=== PATIENT | male | born 1950 | race Caucasian/White ===

== ENCOUNTER 2018-11-09 08:38 | Emergency (ER) | payer OTHER, MEDICAID ==
[~2018-11-09] VITALS: Ht 167.6 cm; Wt 59.0 kg
[2018-11-09 08:46] VITALS: BP 154/95
--- NOTE | 2018-11-09 08:56 | NUR ---
BIB CAREGIVER FROM [facility] C/O LEFT FOOT REDNESS & SWOLLEN X LAST NIGHT. PT ACTING NEUROLOGICALLY AT BASE LINE. STEADY GAIT. CAP REFILL < 3 SECS, + MOVEMENT, + SENSATION TO L FOOT. TENDER TO TOUCH. 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 HOB UP. BED SIDE RAILS UP X1. ON LOW BED POSITION, LOCKED. ER MADE AWARE OF PT STATUS.
--- NOTE | 2018-11-09 08:56 | NUR ---
pt in wheelchair to er bed 04
--- NOTE | 2018-11-09 09:05 | NUR ---
DR Remington SCHERER AT BEDSIDE FOR PT EVALUATION
[2018-11-09] MEDS ORDERED: MORPHINE SULFATE 2 MG/ML SYR IVP ONE (09:10)
--- NOTE | 2018-11-09 09:17 | NUR ---
PORT SURVEYOR AT BEDSIDE
--- NOTE | 2018-11-09 09:35 | NUR ---
FENCE RIDER AT BEDSIDE
[2018-11-09 09:36] LABS: BASOPHILS % (AUTO) 0.4 % (0.0-2.0); EOSINOPHILS # (AUTO) 0.1 K/uL (0-0.4); HEMATOCRIT 43.5 % (36-52); HEMOGLOBIN 14.4 g/dL (12.0-18.0); LYMPHOCYTES # (AUTO) 0.9 K/uL (2.0-11.5); LYMPHOCYTES % (AUTO) 13.5 % (20.5-51.1); MEAN CORPUSCULAR HEMOGLOBIN 30 pg (27-31); MEAN CORPUSCULAR HGB CONC 33 g/dL (33-37); MEAN CORPUSCULAR VOLUME 91.3 fL (80-94); MONOCYTES % (AUTO) 14.7 % (1.7-9.3); NEUTROPHILS # (AUTO) 4.5 K/uL (1.8-7.7); NEUTROPHILS % (AUTO) 69.4 % (42.2-75.2); PLATELET COUNT (AUTO) 257 K/uL (140-450); RED BLOOD CELL COUNT(AUTO) 4.77 MIL/uL (4.20-6.10); RED CELL DISTRIBUTION WIDTH 13.5 % (11.6-13.7); WHITE BLOOD COUNT (AUTO) 6.5 K/uL (4.8-10.8)
--- NOTE | 2018-11-09 09:46 | NUR ---
RECEIVED CALL FROM hiogi THAT CRP LAB WILL BE DELAYED DUE TO ENGINEERING PROBLEM. DR Remington SCHERER MADE AWARE.
[2018-11-09 09:50] LABS: ANION GAP 10.8 (8-16); CARBON DIOXIDE 29.7 mmol/L (21-32); CREATININE 1.3 mg/dL (0.7-1.3); POTASSIUM 3.5 mmol/L (3.5-5.1)
[2018-11-09 09:57] LABS: ALBUMIN 3.6 g/dL (3.4-5.0); TOTAL BILIRUBIN 0.3 mg/dL (0.0-1.0)
--- NOTE | 2018-11-09 10:00 | NUR ---
PT IS RELAXED, ACTING APPROPRIATELY. NO SIGNS AND SYMPTOMS OF DISTRESS NOTED.
--- NOTE | 2018-11-09 11:07 | NUR ---
DR Bulmaro SCHERER AT BEDSIDE FOR PT RE EVALUATION
[2018-11-09 11:20] VITALS: BP 104/66
--- NOTE | 2018-11-09 11:20 | NUR ---
Patient discharged with v/s stable. Written and verbal after care instructions given and explained. Patient alert, oriented and verbalized understanding of instructions. Wheel Chair Assisted with by caregiver. All questions addressed prior to discharge. ID band removed. Patient advised to follow up with PMD. Rx of Keflex given. Patient educated on indication of medication including possible reaction and side effects. Opportunity to ask questions provided and answered.
== END 2018-11-09 11:20 | disposition home or self-care (01) ==
LOC: MED 08:38
DX: L03.116 Cellulitis of left lower limb (principal)
CPT/HCPCS: 36415; 73630; 80053; 85025; 85651; 86140; 93971; 96374; 99284; J2270; Q0092; 99283

== ENCOUNTER 2018-11-20 15:18 | Emergency (ER) | payer OTHER, MEDICAID ==
[~2018-11-20] VITALS: Ht 167.6 cm; Wt 63.5 kg
[2018-11-20 15:26] VITALS: BP 125/78
--- NOTE | 2018-11-20 15:49 | NUR ---
PT IS UNABLE TO COMMUNICATE. PER CAREGIVER, C/O RT KNEE PAIN X1 DAY. PT RETRACTS FROM TOUCH TO RT KNEE. ERYTHEMA AND EDEMA PRESENT IN RT KNEE. CARE TACKER DENIES TRAUMA. PT FROM [facility] BOARD IN CARE. PT WAS SEEN HERE ON 11/09 FOR LEFT FOOT SWELLING AND GIVEN KEFLEX. DENIES N/V/D; SKIN IS PINK/WARM/DRY; PT'S CAREGIVER DENIES ANY FEVER, CP, SOB, OR COUGH AT THIS TIME; PATIENT IS UNABLE TO DESCRIPE THE PAIN; VSS; PATIENT POSITIONED FOR COMFORT; HOB ELEVATED; BEDRAILS UP X2; BED DOWN. ER MD MADE AWARE OF PT STATUS. CAREGIVER IS AT BEDSIDE.
[2018-11-20] MEDS ORDERED: ceFAZolin 1,000 MG VIAL IM ONE (16:00)
[2018-11-20] MEDS ORDERED: KETOROLAC 60 MG/2 ML VIAL IM ONE (16:00)
[2018-11-20] MEDS ORDERED: WATER STERILE 10 ML MC ONE (16:22)
[2018-11-20 17:01] VITALS: BP 124/79
--- NOTE | 2018-11-20 17:01 | NUR ---
Patient discharged with v/s stable. Written and verbal after care instructions given and explained caregiver. All questions addressed prior to discharge. Rx of Keflex given. Patient's caregiver educated on indication of medication including possible reaction and side effects. Opportunity to ask questions provided and answered. Pt was discharged by .
== END 2018-11-20 17:01 | disposition home or self-care (01) ==
LOC: MED 15:18
DX: L03.115 Cellulitis of right lower limb (principal); I10 Essential (primary) hypertension; F41.9 Anxiety disorder, unspecified; E78.5 Hyperlipidemia, unspecified
CPT/HCPCS: 96372; 99283; J0690; J1885

== ENCOUNTER 2019-05-30 18:50 | Emergency (ER) | payer OTHER, MEDICAID ==
[~2019-05-30] VITALS: Ht 154.9 cm; Wt 61.5 kg
[2019-05-30 18:58] VITALS: BP 142/31
--- NOTE | 2019-05-30 19:08 | NUR ---
68 Y/O M BIB CAREGIVER FROM [facility] FOR LEFT HAND PAIN. LEFT HAND REDNESS AND SWELLING NOTED, WARM TO TOUCH. PAIN LEVEL 5/10 ACCORDING TO DORSEY LAINEZ FACES PAIN SCALE. PT AFEBRILE. PT NONVERBAL. AT BASELINE/MENTAL STATUS PER CAREGIVER. HOB ELEVATED, BED IN LOWEST POSITION, BED RAIL UP X2. CAREGIVER AT BEDSIDE. WAITING FOR ERMD TO EVALUATE PT. ALLERGIES: NKA MED HX: CP-PID, HTN, HYPERLIPIDEMIA, CHRONIC CONSTIPATION, SELF ABUSIVE DEPRESSION, ANXIETY WITH AGGRESSIVE BEHAVIOR
--- NOTE | 2019-05-30 19:17 | NUR ---
DR. LÓPEZ AT EVALUATING PT AT BEDSIDE
[2019-05-30] MEDS ORDERED: CEPHALEXIN 500 MG CAP PO ONE (19:25)
[2019-05-30] MEDS ORDERED: LORazepam 1 MG TAB PO ONE (19:25)
--- NOTE | 2019-05-30 19:40 | NUR ---
XRAY AT BEDSIDE
[2019-05-30 20:10] VITALS: BP 142/31
--- NOTE | 2019-05-30 20:10 | NUR ---
Patient discharged with v/s stable. Written and verbal after care instructions given and explained. Patient alert, oriented and verbalized understanding of instructions. Ambulatory with steady gait. All questions addressed prior to discharge. ID band removed. Patient advised to follow up with PMD. Rx of KEFLEX WAS given. Patient educated on indication of medication including possible reaction and side effects. Opportunity to ask questions provided and answered.
== END 2019-05-30 20:10 | disposition home or self-care (01) ==
LOC: MED 18:50
DX: L03.113 Cellulitis of right upper limb (principal); I10 Essential (primary) hypertension; E78.5 Hyperlipidemia, unspecified; F32.9 Major depressive disorder, single episode, unspecified; F41.9 Anxiety disorder, unspecified
CPT/HCPCS: 73120; 99283; Q0092

== ENCOUNTER 2021-11-23 11:35 | Emergency (ER) | payer OTHER, MEDICAID ==
[~2021-11-23] VITALS: Ht 172.7 cm; Wt 59.9 kg
[2021-11-23 11:37] VITALS: BP 132/76
[2021-11-23] MEDS ORDERED: NAPR-54 PO (12:15)
[2021-11-23] MEDS ORDERED: CEPH-588 PO (12:15)
--- NOTE | 2021-11-23 12:16 | NUR ---
NO NURSING INTERVENTIONS GIVEN. NO NEED FOR COMPLETE ASSESSMENT
--- NOTE | 2021-11-23 12:33 | NUR ---
Patient discharged with v/s stable. Written and verbal after care instructions given and explained. Patient alert, oriented and verbalized understanding of instructions. Wheel Chair Assisted with by caregiver. All questions addressed prior to discharge. ID band removed. Patient advised to follow up with PMD. Rx of NAPROXEN AND KEFLEX given. Patient educated on indication of medication including possible reaction and side effects. Opportunity to ask questions provided and answered.
[2021-11-23 12:34] VITALS: BP 132/76
== END 2021-11-23 12:33 | disposition home or self-care (01) ==
LOC: MED 11:35
DX: S50.861A Insect bite (nonvenomous) of right forearm, initial encounter (principal); S60.461A Insect bite (nonvenomous) of left index finger, initial encounter; L03.113 Cellulitis of right upper limb; L03.012 Cellulitis of left finger; I10 Essential (primary) hypertension; Z79.1 Long term (current) use of non-steroidal anti-inflammatories (NSAID); Z79.2 Long term (current) use of antibiotics; W57.XXXA Bitten or stung by nonvenomous insect and other nonvenomous arthropods, initial encounter; Y92.89 Other specified places as the place of occurrence of the external cause; Y93.89 Activity, other specified; Y99.8 Other external cause status
CPT/HCPCS: 99283

== ENCOUNTER 2023-04-12 21:10 | Inpatient (IN) | payer OTHER, MEDICAID ==
[~2023-04-12] VITALS: Ht 172.7 cm; Wt 65.8 kg
[~2023-04-12 21:10] MED LIST: CEPH-588 PO; NAPR-54 PO
[2023-04-12 21:12] VITALS: BP 104/68; PULSE 82; RESP 16; TEMP 96.6; O2SAT 95
[2023-04-12 21:45] LABS: BASOPHILS % (AUTO) 0.5 % (0.0-2.0); EOSINOPHILS # (AUTO) 0.1 K/uL (0-0.4); EOSINOPHILS % (AUTO) 1.5 % (0.0-4.0); HEMATOCRIT 36.4 % (36-52); HEMOGLOBIN 12.2 g/dL (12.0-18.0); LYMPHOCYTES # (AUTO) 1.2 K/uL (2.0-11.5); LYMPHOCYTES % (AUTO) 16.3 % (20.5-51.1); MEAN CORPUSCULAR HEMOGLOBIN 30 pg (27-31); MEAN CORPUSCULAR HGB CONC 33 g/dL (33-37); MONOCYTES # (AUTO) 1.2 K/uL (0.8-1.0); MONOCYTES % (AUTO) 15.9 % (1.7-9.3); NEUTROPHILS # (AUTO) 4.9 K/uL (1.8-7.7); NEUTROPHILS % (AUTO) 65.8 % (42.2-75.2); PLATELET COUNT (AUTO) 226 K/uL (140-450); RED BLOOD CELL COUNT(AUTO) 4.09 MIL/uL (4.20-6.10); RED CELL DISTRIBUTION WIDTH 14.7 % (11.6-13.7); WHITE BLOOD COUNT (AUTO) 7.4 K/uL (4.8-10.8)
[2023-04-12 22:06] LABS: ALANINE AMINOTRANSFERASE 16 U/L (12-78); ALBUMIN 2.6 g/dL (3.4-5.0); ALCOHOL, BLOOD < 3 mg/dL (<10); ALKALINE PHOSPHATASE 62 U/L (50-136); ASPARTATE AMINOTRANSFERASE 22 U/L (15-37); CALCIUM 8.5 mg/dL (8.5-10.1); CARBON DIOXIDE 25.3 mmol/L (21-32); CHLORIDE 103 mmol/L (98-107); CREATINE KINASE, TOTAL 32 U/L (39-308); CREATININE 1.7 mg/dL (0.6-1.3); GFR ARICAN-AMERICAN 52 mL/min (>90); GFR NON ARICAN-AMERICAN 43 mL/min (>90); GLUCOSE 130 mg/dL (74-106); POTASSIUM 4.3 mmol/L (3.5-5.1); SODIUM SERUM 136 mmol/L (136-145); TOTAL BILIRUBIN 0.3 mg/dL (0.0-1.0); TOTAL PROTEIN, SERUM 7.1 g/dL (6.4-8.2); UREA NITROGEN, BLOOD 18 mg/dL (7-18)
[2023-04-12 22:07] LABS: ACETAMINOPHEN < 0.5 ug/ml (10-30); SALICYLATE < 2.8 mg/dL (2.8-20.0)
[2023-04-12 22:47] LABS: APPEARANCE,URINE CLEAR (CLEAR); BILIRUBIN,URINE NEGATIVE (NEGATIVE); BLOOD, URINE 3+ (NEGATIVE); COLOR,URINE YELLOW (YELLOW); LEUKOCYTE ESTERASE ,URINE 2+ (NEGATIVE); NITRITE, URINE NEGATIVE (NEGATIVE); PH,URINE 6.5 (5.0-9.0); PROTEIN,URINE TRACE (NEGATIVE); UGLUCOSE NEGATIVE (NEGATIVE)
[2023-04-12 23:02] LABS: BACTERIA,URINE >30 (MANY) /HPF (None Seen); MUCUS,URINE 1+ /LPF (None Seen); RBC,URINE TOO NUMEROUS TO COUN /HPF (0-5); SQUAMOUS EPITHELIAL CELL,UR 0-3 (FEW) /LPF (0-3 (FEW)); WBC,URINE TOO MANY TO COUNT /HPF (0-5)
[2023-04-12] MEDS ORDERED: cefTRIAXone 1,000 MG VIAL ONE (23:42)
[2023-04-12] MEDS ORDERED: AZITHROMYCIN 500 MG in DEXTROSE 5% 250 ML IV ONE (23:50)
[2023-04-13] MEDS ORDERED: AZITHROMYCIN 500 MG INJ VIAL IV ONE (00:18)
[2023-04-13] MEDS ORDERED: ZOLPIDEM 5 MG TAB PO PRN (01:25)
[2023-04-13] MEDS ORDERED: HYDROcodone/APAP 7.5/325 MG 1 TAB PO PRN (01:25)
[2023-04-13] MEDS ORDERED: POTASSIUM CHLORIDE 10 MEQ TABER PO PRN (01:25)
[2023-04-13] MEDS ORDERED: ONDANSETRON 4 MG/2 ML VIAL IM/IVP PRN (01:25)
[2023-04-13] MEDS ORDERED: DOCUSATE SODIUM 100 MG GELCAP PO PRN (01:25)
[2023-04-13] MEDS ORDERED: guaiFENesin DM 200/20 MG-10 ML 10 ML UDC PO PRN (01:25)
[2023-04-13] MEDS ORDERED: ACETAMINOPHEN 325 MG TAB PO PRN (01:25)
[2023-04-13] MEDS ORDERED: FAMO-92 PO (03:12)
[2023-04-13] MEDS ORDERED: THO25 PO (03:12)
[2023-04-13] MEDS ORDERED: ASPI-1822 PO (03:12)
[2023-04-13] MEDS ORDERED: LIB25 PO (03:12)
[2023-04-13] MEDS ORDERED: DIVA125E1 PO (03:12)
[2023-04-13 04:00] VITALS: BP 108/75; PULSE 77; PULSE 83; RESP 16; TEMP 98.5; O2SAT 95; O2SAT 96
[2023-04-13] MEDS: NACL 0.9% 1,000 ML IV SCH ×3 (04:05→23:09)
[2023-04-13 05:20] LABS: BASOPHILS % (AUTO) 0.5 % (0.0-2.0); EOSINOPHILS # (AUTO) 0.2 K/uL (0-0.4); EOSINOPHILS % (AUTO) 2.3 % (0.0-4.0); HEMATOCRIT 36.1 % (36-52); HEMOGLOBIN 12.1 g/dL (12.0-18.0); LYMPHOCYTES # (AUTO) 1.4 K/uL (2.0-11.5); LYMPHOCYTES % (AUTO) 19.2 % (20.5-51.1); MEAN CORPUSCULAR HEMOGLOBIN 30 pg (27-31); MEAN CORPUSCULAR HGB CONC 34 g/dL (33-37); MEAN CORPUSCULAR VOLUME 89.8 fL (80-94); MONOCYTES # (AUTO) 1.2 K/uL (0.8-1.0); MONOCYTES % (AUTO) 15.8 % (1.7-9.3); NEUTROPHILS # (AUTO) 4.6 K/uL (1.8-7.7); NEUTROPHILS % (AUTO) 62.2 % (42.2-75.2); PLATELET COUNT (AUTO) 229 K/uL (140-450); RED BLOOD CELL COUNT(AUTO) 4.02 MIL/uL (4.20-6.10); RED CELL DISTRIBUTION WIDTH 15.2 % (11.6-13.7); WHITE BLOOD COUNT (AUTO) 7.4 K/uL (4.8-10.8)
[2023-04-13 06:03] LABS: ALBUMIN 2.6 g/dL (3.4-5.0); ANION GAP 13.3 (8-16); CALCIUM 8.5 mg/dL (8.5-10.1); CARBON DIOXIDE 28.1 mmol/L (21-32); CREATININE 1.5 mg/dL (0.6-1.3); POTASSIUM 4.4 mmol/L (3.5-5.1); TOTAL BILIRUBIN 0.3 mg/dL (0.0-1.0); TOTAL PROTEIN, SERUM 7.2 g/dL (6.4-8.2)
[2023-04-13 08:00] VITALS: BP 128/71; PULSE 110; PULSE 94; RESP 18; TEMP 98.9; O2SAT 98
[2023-04-13] MEDS: DIVALPROEX SPRINKLES 125 MG CAPDR PO SCH ×2 (09:21→20:27)
[2023-04-13] MEDS: chlordiazePOXIDE 25 MG CAP PO SCH (09:21)
[2023-04-13] MEDS: PIPERACILLIN/TAZOBACTAM 3.375 GM in DEXTROSE 5% 50 ML IV SCH ×3 (09:21→20:27)
[2023-04-13] MEDS: PANTOPRAZOLE 40 MG TABEC PO SCH (09:21)
[2023-04-13 12:00] VITALS: BP 115/82; PULSE 83; PULSE 85; RESP 18; TEMP 98.8; O2SAT 97
[2023-04-13 16:00] VITALS: BP 130/56; PULSE 100; PULSE 96; RESP 18; TEMP 98.9; O2SAT 96
[2023-04-13 20:00] VITALS: BP 96/78; PULSE 105; RESP 18; TEMP 99.4; O2SAT 97
[2023-04-13] MEDS: chlorproMAZINE 25 MG TAB PO SCH (20:27)
[2023-04-14] VITALS: BP 101/79; PULSE 101; PULSE 116; RESP 18; TEMP 99.4; O2SAT 97
[2023-04-14 04:00] VITALS: BP 144/82; PULSE 110; RESP 18; TEMP 99.5; O2SAT 96
[2023-04-14 05:22] LABS: BASOPHILS % (AUTO) 0.3 % (0.0-2.0); EOSINOPHILS % (AUTO) 0.3 % (0.0-4.0); HEMATOCRIT 36.8 % (36-52); HEMOGLOBIN 12.5 g/dL (12.0-18.0); LYMPHOCYTES # (AUTO) 0.7 K/uL (2.0-11.5); LYMPHOCYTES % (AUTO) 6.9 % (20.5-51.1); MEAN CORPUSCULAR HEMOGLOBIN 30 pg (27-31); MEAN CORPUSCULAR HGB CONC 34 g/dL (33-37); MEAN CORPUSCULAR VOLUME 89.2 fL (80-94); MONOCYTES # (AUTO) 1.7 K/uL (0.8-1.0); MONOCYTES % (AUTO) 16.2 % (1.7-9.3); NEUTROPHILS # (AUTO) 8.1 K/uL (1.8-7.7); NEUTROPHILS % (AUTO) 76.3 % (42.2-75.2); PLATELET COUNT (AUTO) 266 K/uL (140-450); RED BLOOD CELL COUNT(AUTO) 4.13 MIL/uL (4.20-6.10); RED CELL DISTRIBUTION WIDTH 14.7 % (11.6-13.7); WHITE BLOOD COUNT (AUTO) 10.6 K/uL (4.8-10.8)
[2023-04-14] MEDS: PIPERACILLIN/TAZOBACTAM 3.375 GM in DEXTROSE 5% 50 ML IV SCH ×3 (05:32→23:37)
[2023-04-14 06:17] LABS: ALBUMIN 2.6 g/dL (3.4-5.0); ANION GAP 15.4 (8-16); CALCIUM 8.8 mg/dL (8.5-10.1); CARBON DIOXIDE 26.9 mmol/L (21-32); CREATININE 1.3 mg/dL (0.6-1.3); POTASSIUM 4.3 mmol/L (3.5-5.1); TOTAL BILIRUBIN 0.2 mg/dL (0.0-1.0); TOTAL PROTEIN, SERUM 7.8 g/dL (6.4-8.2)
[2023-04-14 08:00] VITALS: BP 156/92; PULSE 103; PULSE 60; RESP 18; TEMP 97; O2SAT 96
[2023-04-14] MEDS: DIVALPROEX SPRINKLES 125 MG CAPDR PO SCH ×2 (09:36→20:47)
[2023-04-14] MEDS: chlordiazePOXIDE 25 MG CAP PO SCH (09:36)
[2023-04-14] MEDS: PANTOPRAZOLE 40 MG TABEC PO SCH (09:37)
[2023-04-14 16:00] VITALS: BP 124/69; PULSE 113; RESP 19; TEMP 99.1; O2SAT 96
[2023-04-14 20:00] VITALS: BP 140/65; PULSE 103; PULSE 106; RESP 18; RESP 19; TEMP 99; O2SAT 6; O2SAT 96
[2023-04-14] MEDS: chlorproMAZINE 25 MG TAB PO SCH (20:47)
[2023-04-15 04:00] VITALS: BP 143/68; PULSE 100; RESP 18; TEMP 97.4; O2SAT 100
[2023-04-15] MEDS: PIPERACILLIN/TAZOBACTAM 3.375 GM in DEXTROSE 5% 50 ML IV SCH (04:54)
[2023-04-15 05:16] LABS: BASOPHILS % (AUTO) 0.3 % (0.0-2.0); EOSINOPHILS # (AUTO) 0.1 K/uL (0-0.4); EOSINOPHILS % (AUTO) 0.6 % (0.0-4.0); HEMATOCRIT 34.6 % (36-52); HEMOGLOBIN 11.5 g/dL (12.0-18.0); LYMPHOCYTES # (AUTO) 1.1 K/uL (2.0-11.5); LYMPHOCYTES % (AUTO) 9.3 % (20.5-51.1); MEAN CORPUSCULAR HEMOGLOBIN 30 pg (27-31); MEAN CORPUSCULAR HGB CONC 33 g/dL (33-37); MEAN CORPUSCULAR VOLUME 89.6 fL (80-94); MONOCYTES # (AUTO) 2.2 K/uL (0.8-1.0); MONOCYTES % (AUTO) 18.1 % (1.7-9.3); NEUTROPHILS # (AUTO) 8.6 K/uL (1.8-7.7); NEUTROPHILS % (AUTO) 71.7 % (42.2-75.2); PLATELET COUNT (AUTO) 276 K/uL (140-450); RED BLOOD CELL COUNT(AUTO) 3.87 MIL/uL (4.20-6.10); RED CELL DISTRIBUTION WIDTH 14.6 % (11.6-13.7); WHITE BLOOD COUNT (AUTO) 11.9 K/uL (4.8-10.8)
[2023-04-15 06:01] LABS: ALBUMIN 2.1 g/dL (3.4-5.0); ANION GAP 14.6 (8-16); CALCIUM 8.6 mg/dL (8.5-10.1); CREATININE 1.4 mg/dL (0.6-1.3); POTASSIUM 3.6 mmol/L (3.5-5.1); TOTAL BILIRUBIN 0.5 mg/dL (0.0-1.0); TOTAL PROTEIN, SERUM 7.2 g/dL (6.4-8.2)
[2023-04-15 08:00] VITALS: PULSE 105; RESP 18; O2SAT 95
[2023-04-15] MEDS: DIVALPROEX SPRINKLES 125 MG CAPDR PO SCH (09:22)
[2023-04-15] MEDS: PANTOPRAZOLE 40 MG TABEC PO SCH (09:22)
[2023-04-15] MEDS: chlordiazePOXIDE 25 MG CAP PO SCH (09:22)
[2023-04-15] MEDS ORDERED: LEVO-481 PO (10:13)
== END 2023-04-15 15:04 | disposition home or self-care (01) | DRG 871 ==
LOC: MED 21:10 → MTU 04-13 01:23
PROVIDERS: ADMIT Student in an Organized Health Care Education/Training Program; ATTEND Student in an Organized Health Care Education/Training Program
DX: A41.9 Sepsis, unspecified organism (principal); J69.0 Pneumonitis due to inhalation of food and vomit; N17.0 Acute kidney failure with tubular necrosis; N39.0 Urinary tract infection, site not specified; E44.0 Moderate protein-calorie malnutrition; G80.9 Cerebral palsy, unspecified; H54.7 Unspecified visual loss; I10 Essential (primary) hypertension; Z68.22 Body mass index [BMI] 22.0-22.9, adult
CPT/HCPCS: 36415; 70450; 71045; 80053; 81001; 82550; 84484; 85025; 87040; 87081; 87086; 93005; 96365; 96367; 99291; G0480; G0482; J0456; J0696; J2543; J7060; Q0092